=== PATIENT | male | born 1960 | race Caucasian/White ===

== ENCOUNTER 2020-12-05 13:06 | Emergency (ER) | payer BC ==
[~2020-12-05] VITALS: Ht 175.3 cm; Wt 81.7 kg
[~2020-12-05 13:06] MED LIST: ASPIR-LOW81 MG PO; LIPITOR40 MG PO; NORVASC5 MG PO; SENNA PLUS TAB1 EACH PO
[2020-12-05] MEDS ORDERED: LISINOPRIL20 MG PO (16:51)
== END 2020-12-05 16:35 ==
LOC: ED 13:06
DX: I46.9 Cardiac arrest, cause unspecified (principal); R01.2 Other cardiac sounds; F17.200 Nicotine dependence, unspecified, uncomplicated; Z79.899 Other long term (current) drug therapy; Z79.82 Long term (current) use of aspirin
CPT/HCPCS: 31500; 80053; 84484; 92950; 99291; J0171; J3475